=== PATIENT | female | born 1950 | race Caucasian/White ===

== ENCOUNTER 2018-06-16 10:45 | Outpatient (REF) | payer MEDICARE, MEDICAID, SELFPAY ==
[2018-06-16 19:56] LABS: Creatinine,Urine 90.76 mg/dL
[2018-06-16 20:15] LABS: Creatinine,24hr Ur 1.27 g/24hr (0.60-1.80); Total Volume 1425 ml
[2018-06-19 09:18] LABS: Uric Acid Urine 24hr 499 mg/24h (250-750)
[2018-06-19 09:24] LABS: Calcium Urine 21.6 mg/dl; Calcium Urine 24 hr 308 mg/24hr (100-300)
[2018-06-20 12:36] LABS: Oxalate Conc (mmol/L) 0.09 mmol/L; Oxalate Concentration 7.9 mg/L; Oxalate, U 0.13 mmol/24 h; Oxalate, U 11.4 mg/24 h (9.7 - 40.5); Urine Volume 1425 mL
== END 2018-06-16 11:05 ==
LOC: NCHCN 10:45
PROVIDERS: PCP Internal Medicine; Visit Provider Internal Medicine
DX: N18.3 Chronic kidney disease, stage 3 (moderate) (principal)
CPT/HCPCS: 81050; 82340; 82570; 83945; 84560

== ENCOUNTER 2018-12-14 12:53 | Outpatient (REF) | payer MEDICARE, MEDICAID, SELFPAY ==
[2018-12-14 19:42] LABS: ALT 27 U/L (12-78); AST 18 U/L (15-37); Amylase 43 U/L (25-115); Anion Gap 8.6 mmol/L (3-11); BUN 19 mg/dL (7-18); CO2 27.4 mmol/L (21.0-32.0); Chloride 102 mmol/L (98-107); Glucose 146 mg/dL (70-100); Lipase 73 U/L (73-393); Potassium 3.7 mmol/L (3.5-5.1); Sodium 138 mmol/L (136-145)
[2018-12-14 19:48] LABS: Calcium 10.9 mg/dL (8.5-10.1)
[2018-12-14 19:59] LABS: HGB 13.5 g/dL (12.0-15.5); Mean Corp. HGB Concentration 32.1 g/dL (32.0-36.0); Mean Corpuscular Hemoglobin 29.3 pg (27.0-33.0); Mean Corpuscular Volume 91.3 fL (80-95); Mean Platelet Volume 10.3 fL (8.0-11.0); Platelet Count 253 x1000/uL (130-400); RBC Distribution Width 13.9 % (11.7-14.6); White Blood Cell Count 8.85 k/cumm (4.4-10.8)
== END 2018-12-14 13:13 ==
LOC: NCHCN 12:53
PROVIDERS: PCP Internal Medicine; Visit Provider Nurse Practitioner Family
DX: I10 Essential (primary) hypertension (principal); R11.0 Nausea
CPT/HCPCS: 80048; 83690; 85027; 82150; 84450; 84460

== ENCOUNTER 2019-04-02 14:50 | Outpatient (REF) | payer MEDICARE, MEDICAID, SELFPAY ==
[2019-04-02 19:07] LABS: Anion Gap 10.1 mmol/L (3-11); BUN 20 mg/dL (7-18); CO2 25.9 mmol/L (21.0-32.0); Calcium 11.4 mg/dL (8.5-10.1); Chloride 106 mmol/L (98-107); Estimated GFR 48.96 (mL/min/1.73m2); Glucose 101 mg/dL (70-100); Potassium 4.4 mmol/L (3.5-5.1); Sodium 142 mmol/L (136-145)
[2019-04-02 19:26] LABS: Bilirubin Negative (Negative); Blood Negative (Negative); Clarity Cloudy (Clear); Glucose Negative (Negative); Ketones Negative (Negative); Leukocyte Esterase Negative (Negative); Nitrite Negative (Negative); Specific Gravity 1.015 (1.005-1.025); pH 7.5 (5-8)
[2019-04-02 19:58] LABS: WBC 0-2 HPF (0-5)
[2019-04-02 19:59] LABS: Bacteria Few HPF (Negative); Crystals Many Amorphous HPF (Negative); Epithelial Cells Many HPF (Negative); Mucus Negative (Negative); RBC Negative (0-2)
[2019-04-02 20:00] LABS: C & S Indicated? No/Sq. Contamination
== END 2019-04-02 15:10 ==
LOC: NCHCN 14:50
PROVIDERS: PCP Internal Medicine; Visit Provider Nurse Practitioner Family
DX: R10.32 Left lower quadrant pain (principal)
CPT/HCPCS: 80048; 81003; 81015

== ENCOUNTER 2019-08-16 11:20 | Outpatient (REF) | payer MEDICARE, SELFPAY ==
[2019-08-16 19:50] LABS: Anion Gap 11.6 mmol/L (3-11); BUN 18 mg/dL (7-18); CO2 27.4 mmol/L (21.0-32.0); CREATININE 1.08 mg/dL (0.55-1.02); Calcium 11.2 mg/dL (8.5-10.1); Calculated LDL 81 mg/dL; Chloride 102 mmol/L (98-107); Cholesterol 170 mg/dL (50-200); Estimated GFR 50.01 (mL/min/1.73m2); Glucose 106 mg/dL (70-100); HDL Cholesterol 48 mg/dL (40-60); Potassium 3.8 mmol/L (3.5-5.1); Sodium 141 mmol/L (136-145); TSH (W/Ref FT4) 1.82 uIU/mL (0.36-3.74); Triglyceride 205 mg/dL (30-150)
== END 2019-08-16 11:40 ==
LOC: NCHCN 11:20
PROVIDERS: PCP Internal Medicine; Visit Provider Nurse Practitioner Family
DX: I10 Essential (primary) hypertension (principal); E78.5 Hyperlipidemia, unspecified; E21.3 Hyperparathyroidism, unspecified
CPT/HCPCS: 80048; 80061; 84443

== ENCOUNTER 2020-01-31 08:17 | Outpatient (CLI) | payer MEDICARE, MEDICAID, SELFPAY ==
[2020-02-01 19:30] LABS: COVID-19 RT-PCR UVMMC Result Negative (Negative)
== END 2020-01-31 08:37 ==
PROVIDERS: PCP Internal Medicine; Visit Provider Urology
DX: N20.1 Calculus of ureter (principal); J44.9 Chronic obstructive pulmonary disease, unspecified; Z87.891 Personal history of nicotine dependence; Z11.59 Encounter for screening for other viral diseases
CPT/HCPCS: 99203; U0003

== ENCOUNTER 2020-02-05 06:04 | Day surgery (SDC) | payer MEDICARE, MEDICAID, SELFPAY ==
[2020-02-05 06:26] VITALS: BP 185/95; PULSE 68; RESP 18; TEMP 36.6; O2SAT 94
[2020-02-05] MEDS: Lactated Ringers 1,000 ML 80 ML IV (06:48)
--- NOTE | 2020-02-05 07:03 | HPE_ITS ---
Date of service: 02/05/20 Time of Service: 07:03 Assessment and Plan Assessment and plan (1) Left ureteral stone: Status: Acute Assessment and plan: She presents for ureteroscopic stone manipulation History of Present Illness History of Present Illness Chief Complaint: Left ureteral stone Narrative: This is a 69-year-old woman who has had very intermittent left abdominal and flank discomfort over the past year. About a month ago, she developed more persistent symptoms including abdominal pain and bloating. On examination, she was found to have microscopic hematuria which prompted a CT scan of the abdomen and pelvis. She was found to have a 7 mm left proximal ureteral stone. She had a stent placed about a month ago. She has had quite a bit of stent discomfort and frequency, urgency and incontinence. Dr. Thayer was not able to offer laser lithotripsy services at [facility], so she comes here in preparation of ureteroscopy with holmium laser. She continues to have some nausea but no documented fevers or urinary tract infection. She does have pain especially toward the end of urination. She has no known metabolic issues such as hyperparathyroid disease or gout. She has no known bleeding disorders. She has not had any adverse reaction to anesthesia in the past. She has not had any prior urologic surgeries (with the exception of her stent placement). Review of Systems Narrative: No fevers or chills No vision change or dysphasia No diabetes. Has thyroid followed by yearly ultrasound. No shortness of breath, cough or hemoptysis No chest pain or palpitations c/o nausea. No vomiting, hepatitis, ulcers, jaundice, diarrhea or constipation No seizures, strokes or peripheral neuropathy No bleeding disorders or anemia. Takes baby aspirin No gout PFSH Social History (Updated 01/31/20 @ 14:11 by Rodri Payton MD) Smoking/Tobacco Use Status: Former Tobacco Use Alcohol Intake: current Alcohol Intake frequency: holidays/special occasions only Alcohol type: beer and wine Do you feel safe at home: Yes Meds Home Medications and Allergies Home Medications Medication Instructions Recorded Confirmed Type albuterol sulfate 90 mcg/actuation 2 puff IH Q4H PRN gm 01/31/20 02/05/20 History aerosol inhaler aspirin 81 mg tablet,delayed 81 mg PO DAILY 01/31/20 02/05/20 History release fluoxetine 20 mg capsule 20 mg PO DAILY 01/31/20 02/05/20 History hydrochlorothiazide 25 mg tablet 25 mg PO DAILY 01/31/20 02/05/20 History hydrocodone 5 mg-acetaminophen 325 1 tab PO QHS PRN 01/31/20 02/05/20 History mg tablet hydromorphone 2 mg tablet 2 mg PO Q4H 01/31/20 02/05/20 History ibuprofen 200 mg tablet 400 mg PO Q6H PRN tab 01/31/20 02/05/20 History lisinopril 5 mg tablet 5 mg PO DAILY 01/31/20 02/05/20 History montelukast 10 mg tablet 10 mg PO DAILY 01/31/20 02/05/20 History nifedipine 30 mg tablet,extended 30 mg PO DAILY 01/31/20 02/05/20 History release omeprazole 20 mg capsule,delayed 20 mg PO BID 01/31/20 02/05/20 History release ondansetron HCl 4 mg tablet 4 mg PO Q6H PRN 01/31/20 02/05/20 History pyridostigmine bromide 60 mg tablet 90 mg PO TID tab 01/31/20 02/05/20 History simvastatin 40 mg tablet 40 mg PO DAILY 01/31/20 02/05/20 History umeclidinium 62.5 mcg/actuation 1 inh IH DAILY 01/31/20 02/05/20 History blister powder for inhalation Allergies Allergy/AdvReac Type Severity Reaction Status Date / Time desloratadine [From Clarinex] Allergy Unknown Unverified 02/05/20 06:15 Exam Const General: cooperative and no acute distress Neck Neck: supple Thyroid: no masses Resp Effort & Inspection: normal respiratory effort Auscultation: clear to auscultation bilaterally Cardio Rate: regular rate Rhythm: regular rhythm GI Inspection: normal to inspection Palpation: soft and no guarding Neuro General: patient alert, patient awake and patient oriented x3 Results Last Vital Signs Temp 36.6 C 02/05/20 06:26 Pulse 68 02/05/20 06:26 Resp 18 02/05/20 06:26 BP 185/95 H 02/05/20 06:26 Pulse Ox 94 L 02/05/20 06:26 COVID-19 Screening Traveled to [place] from one of the affected countries or regions?: NO Medical treatment received for symptoms/illness related to travel?: Preop testing completed and negative
[2020-02-05] MEDS: ceFAZolin 1 GM/50 ML BAG IVPB (07:37)
[2020-02-05] MEDS: Lidocaine 2% Jelly 6 ML SYR (07:52)
[2020-02-05] MEDS: Omnipaque 300 MG/ML 50 ML BTL (07:56)
--- NOTE | 2020-02-05 08:42 | DI.RAD_ITS ---
EXAM: XR RETROGRADE IN OR CLINICAL HISTORY: LEFT UERETERAL STONE. TECHNIQUE: Fluoroscopy was provided for the referring physician for guidance with performing retrogr amrit procedure. Fluoro time: 37.0 sec, 11.88 mGy COMPARISON: No exams were available for comparison FINDINGS: Please see procedure note for details. RADIATION DOSE DELIVERED:
--- NOTE | 2020-02-05 08:43 | W.PM.DSUDISC ---
Discharge Plan Disposition Patient Disposition: HOME Condition: Stable Discharge Details Reason For Visit: (L) URETERAL STONE Attending Provider: Rodri Payton Primary Care Provider: Carlos Cunningham Meds and New Rx's Prescriptions: No Action albuterol sulfate 90 mcg/actuation HFA aerosol inhaler 2 puff IH Q4H PRNRF: 0 aspirin 81 mg tablet,delayed release (DR/EC) 81 mg PO DAILY RF: 0 fluoxetine 20 mg capsule 20 mg PO DAILY RF: 0 hydrochlorothiazide 25 mg tablet 25 mg PO DAILY RF: 0 hydrocodone-acetaminophen 5-325 mg tablet 1 tab PO QHS PRNRF: 0 hydromorphone 2 mg tablet 2 mg PO Q4H RF: 0 ibuprofen 200 mg tablet 400 mg PO Q6H PRNRF: 0 Incruse Ellipta 62.5 mcg/actuation blister with device 1 inh IH DAILY RF: 0 lisinopril 5 mg tablet 5 mg PO DAILY RF: 0 montelukast 10 mg tablet 10 mg PO DAILY RF: 0 nifedipine 30 mg tablet extended release 30 mg PO DAILY RF: 0 omeprazole 20 mg capsule,delayed release(DR/EC) 20 mg PO BID RF: 0 ondansetron HCl 4 mg tablet 4 mg PO Q6H PRNRF: 0 pyridostigmine bromide 60 mg tablet 90 mg PO TID RF: 0 simvastatin 40 mg tablet 40 mg PO DAILY RF: 0 Discharge Instructions Additional Instructions: No need to strain urine Followup 3 to 7 days for stent removal - tell my office pt has string in place Pt will need followup renal US in @ 6 weeks Pt already has meds at home so no scripts sent today Followup care can be done at [facility] with Dr Thayer if more convenient for pt Activity:: Activity as Tolerated Shower/Bathe:: 24 hours Diet:: As Tolerated Discharge Orders Discharge Orders: Discharge Order (Routine); Ordered 02/05/20 Ordered By: Rodri Payton DS: Diagnosis Discharge Diagnosis (1) Left ureteral stone: Status: Acute
--- NOTE | 2020-02-05 08:52 | ROE_ITS ---
Date of service: 02/05/20 Time of Service: 08:52 Operative Note Operative Note DATE OF PROCEDURE: 02/05/20 PRE-OP DIAGNOSIS: Left proximal ureteral stone POST-OP DIAGNOSIS: same PROCEDURE: Cystoscopy, remove left ureteral stent, left retrograde pyelogram, left flexible ureteroscopy, holmium laser lithotripsy of left ureteral stone, extraction of stone fragments, insert left ureteral stent SURGEON: Rodri Payton ANESTHESIA: GETA ESTIMATED BLOOD LOSS: 0 PATHOLOGY: other (Stones for chemical analysis) Patient was transported to: PACU Patient's condition: stable Implants: 4.8 Luxembourger variable length ureteral stent with safety string attached Indications: This is a 69-year-old woman who presented to an outside institution with abdominal pain, bloating and hematuria. She was identified as having a proximal left ureteral stone that measured 7 mm. She was treated with a stent placement. The stent has been indwelling for about a month now. She has had quite a bit of stent discomfort. Holmium laser lithotripsy is not yet available at the outside institution, so she presents here for stone manipulation. Findings: Embedded left proximal ureteral stone Procedure Description: The patient was brought to the operating room on 02/05/2020. She was given preoperative IV antibiotics. After successful induction of general anesthesia she was placed in the dorsal lithotomy position. Her genitalia was prepped and draped. A 22 Luxembourger rigid cystoscope was passed through the urethra into the bladder. The bladder was inspected with a 30 degree lens. The right ureteral orifice appeared normal. The left ureteral orifice had marked edema surrounding it and a stent protruding from the lumen of the orifice. The remainder of the bladder appeared normal. We used alligator forceps to grasp the stent and bring it out to the lumen of the urethra. I initially attempted to pass a guidewire through the lumen of the stent, but the stent had quite a few encrustations and it was difficult to pass the wire. I then remove the stent in its entirety and passed a 6 Luxembourger access catheter. I was able to maneuver the catheter into the left ureteral orifice and inject Omnipaque through the catheter under fluoroscopic guidance this allowed us to see a filling defect at the proximal ureter just below the level of the ureteropelvic junction. We then passed a guidewire through the access catheter and removed the catheter. We replaced it with a dual-lumen catheter and passed a second wire. We chose 1 of the wires as a working wire and the other is a safety wire. We then passed a ureteral access sheath over the working wire and positioned the tip of the sheath in the proximal ureter. I then passed the flexible ureteroscope up through the access sheath and maneuvered the scope up toward the ureteropelvic junction. A yellow tinted stone was seen in the proximal ureter. The stone appeared somewhat embedded in the surrounding edematous ureteral mucosa. I then used the 272 ?m holmium laser fiber to fragment the stone. We started with dusting settings of a power of 200 and a rate of 8. Using these settings, we were able to clear the stone from the lumen of the ureter and passed some of the fragments back into the renal pelvis. I then passed the scope into the renal pelvis and grasped the largest of the fragments and a ZeroTip stone basket. These fragments were extracted and sent to pathology for chemical analysis. There is still appeared to be quite a bit of edema in that proximal ureter where the stone had been located I injected Omnipaque again under fluoroscopic guidance. There did not appear to be any extravasation of contrast. We filled each of the calyces and using the retrograde film as a map we made sure to each calyx and ensure the absence of large stone burden. Because of the appearance of the proximal mucosa, I elected to replace the ureteral stent short-term. I chose a smaller stent this time and used a 4.8 Luxembourger variable length stent that was passed over the safety wire the proximal end of the stent was curled in the upper pole calyx and the distal end was curled within the bladder. The safety string was left in place and brought through the patient's urethra. The end of the string was tied into the patient's vaginal cavity. I would recommend removing the stent in 3 to 7 days. The patient tolerated the procedure well with no complications. She was taken to the recovery room in stable condition.
[2020-02-05 08:56] VITALS: BP 174/72; PULSE 64; RESP 14; TEMP 36.4; O2SAT 96
[2020-02-05 09:00] VITALS: BP 169/84; PULSE 65; RESP 15; TEMP 36.4; O2SAT 97
[2020-02-05 09:05] VITALS: BP 178/67; PULSE 63; RESP 13; TEMP 36.4; O2SAT 95
[2020-02-05 09:10] VITALS: BP 172/84; PULSE 60; RESP 14; TEMP 36.7; O2SAT 96
[2020-02-05] MEDS: Phenazopyridine 200 MG TAB PO (09:29)
[2020-02-05] MEDS: HYDROmorphone 2 MG TAB PO (09:29)
[2020-02-05 09:55] VITALS: BP 173/97; PULSE 68; RESP 16; TEMP 36.7; O2SAT 93
[2020-02-11 14:53] LABS: Source: Left Ureter
== END 2020-02-05 10:13 | disposition home or self-care (01) ==
PROVIDERS: PCP Internal Medicine; Visit Provider Urology
PROC: (CPT 52356; principal; 2020-02-05 07:30)
DX: N20.1 Calculus of ureter (principal)
CPT/HCPCS: 52356; NC; 74420; 82365; J0690; J1100; J2405; J3010; Q9967

== ENCOUNTER 2020-07-14 13:57 | Outpatient (REF) | payer MEDICARE, MEDICAID, SELFPAY ==
[2020-07-14 19:55] LABS: Hemoglobin A1C 5.8 % (<5.7)
[2020-07-14 20:11] LABS: Albumin 3.7 g/dL (3.4-5.0); BUN 14 mg/dL (7-18); CREATININE 1.13 mg/dL (0.55-1.02); Calcium 10.4 mg/dL (8.5-10.1); Chloride 105 mmol/L (98-107); Estimated GFR 47.33 (mL/min/1.73m2); Glucose 136 mg/dL (74-106); Potassium 3.6 mmol/L (3.5-5.1); Sodium 141 mmol/L (136-145)
[2020-07-16 09:45] LABS: Parathyroid Hormone,Intact 158 pg/mL (19-88)
== END 2020-07-14 14:17 ==
LOC: NCHCN 13:57
PROVIDERS: PCP Internal Medicine; Visit Provider Nurse Practitioner Family
DX: I10 Essential (primary) hypertension (principal); E21.3 Hyperparathyroidism, unspecified; E11.9 Type 2 diabetes mellitus without complications
CPT/HCPCS: 80048; 82040; 83036; 83970; 84443

== ENCOUNTER 2020-07-25 07:16 | Day surgery (SDC) | payer MEDICARE, MEDICAID, SELFPAY ==
[2020-07-25 07:38] VITALS: BP 149/77; PULSE 80; RESP 20; TEMP 36.4; O2SAT 97
[2020-07-25] MEDS: Lactated Ringers 1,000 ML 80 ML IV (08:30)
[2020-07-25] MEDS: ceFAZolin 1 GM/50 ML BAG IVPB (11:03)
[2020-07-25] MEDS: Lidocaine 1% Multi-Dose 50 ML VIAL (11:05)
[2020-07-25] MEDS: Bupivacaine 0.5% Pres-Free 30 ML VIAL (11:05)
--- NOTE | 2020-07-25 11:40 | BONE_PTH ---
PATIENT: Franchesca Robledo LOC: [facility] U#:[id number] AGE/SX: 70/F ROOM: RE07/25/[address]: Marcus Wang : 1950 BED: DIS: 07/25/2020 SPEC #: [id number] RECD: 07/25/20 12:30 STATUS: VAZQUEZ REQ #: [id number] ZAIDA: 07/25/20 11:[address]: Marcus Wang DEPT: Surgical Specimen RECD BY: Odessa Yepez ENTERED: 07/25/20 12:32 SP TYPE: Bone OTHR DR: Carlos Cunningham Tissues: 1 - BONE BX/CURRETTE NOT PATH FRACTURE Procedures: GROSS AND MICRO LEVEL 4 DECALCIFICATION Comments: [id number]
[2020-07-25] MEDS: Dexamethasone 4 MG/ML VIAL (11:44)
--- NOTE | 2020-07-25 12:01 | ROE_ITS ---
Date of service: 07/25/20 Time of Service: 12:01 Operative Note Operative Note DATE OF PROCEDURE: 07/25/20 PRE-OP DIAGNOSIS: Hammertoe deformity right third digit, exostosis right hallux PROCEDURE: Exostectomy right hallux, arthroplasty with K wire fixation right third toe SURGEON: Marcus Wang ANESTHESIA: local ESTIMATED BLOOD LOSS: 3 PATHOLOGY: other TOURNIQUET TIME: 0 COMPLICATIONS: None Patient was transported to: same day Patient's condition: stable Implants: 0.045 K wire right third toe Indications: 70-year-old female with daily pain associated with a bone spur affecting her right great toe and contracture of her right third digit. Both conditions are causing pain in shoe gear interfering with daily activities. Nonoperative treatments have failed to provide sufficient relief of symptoms. She understands the risk and complications of surgery including the potential for pain, scarring, infection, shortening of the third toe, recurrence of deformities requiring revisional procedures. Informed consent has been obtained no promises made final outcome of surgery. Procedure Description: Franchesca was brought to the operative suite placed in the supine position with the right foot was prepped and draped in the usual sterile podiatric fashion. Timeout was performed in standard fashion. Anesthesia was obtained by local blockade of the right first and third toes using a total of 13 cc 50: 50 mixture, 1% lidocaine plain, 0.5% Marcaine plain. An additional 4 cc 1% lidocaine with epinephrine was then used proximally at the hallux and third toe for hemostasis. Attention was directed to the distal aspect of the right great toe where a partial fishmouth incision was made starting at the midline of the tip of the toe eminence extending medially the incision was deepened via controlled depth and dissection performed so as to expose the underlying bone which is the distal aspect of the distal phalanx. Immediately evident was his white cartilage appearing protein true purulence from the main bone consistent with exostosis. With osteotome and mallet the bone was resected this piece of bone was sent to pathology hand rasp was then used to smooth all remaining bony edges copious irrigation was performed. The incision was closed in a single layer with 4-0 nylon simple interrupted suture. Attention was directed to the dorsal aspect of the right third toe with 2 converging semielliptical incisions were made the incision was deepened in contr olled depth fashion hemostasis being acquired with electrocautery as needed a transverse tenotomy capsulotomy was then performed at the PIPJ level of the medial lateral collaterals were released and the head of the proximal phalanx delivered into the wound. With power instrumentation the head of the proximal phalanx was resected at its surgical neck. Excellent relaxation of the toe was appreciated in the hammering contracture was corrected. The toe was stabilized with a 0.045 K wire in retrograde fashion. Copious irrigation was performed. The extensor tendon was repaired end-to-end with 3-0 Vicryl. The skin was then coapted with simple interrupted suture of 4-0 nylon. 4 mg dexamethasone phosphate was then infused about the third toe. Xeroform gauze fluff compression dressings were applied. Franchesca left the OR with vital signs stable vascular status intact sharp and sponge counts were correct she will be followed by myself in the office next week.
--- NOTE | 2020-07-25 12:08 | PDOC.DSDIS_ITS ---
Discharge Plan Disposition Patient Disposition: HOME Condition: Good Discharge Details Attending Provider: Marcus Wang Primary Care Provider: Carlos Cunningham Home Meds and New Rx's Prescriptions: New hydrocodone-acetaminophen [[place]] 5-325 mg tablet 1 tab PO Q6H PRN (Reason: pain) Qty: 7 RF: 0 ibuprofen 600 mg tablet 600 mg PO Q6H PRN (Reason: pain and inflammation) Qty: 40 RF: 0 Continued albuterol sulfate 90 mcg/actuation HFA aerosol inhaler 2 puff IH Q4H PRNRF: 0 aspirin 81 mg tablet,delayed release (DR/EC) 81 mg PO DAILY RF: 0 fluoxetine 20 mg capsule 20 mg PO DAILY RF: 0 hydrochlorothiazide 25 mg tablet 25 mg PO DAILY RF: 0 hydrocodone-acetaminophen 5-325 mg tablet 1 tab PO QHS PRNRF: 0 hydromorphone 2 mg tablet 2 mg PO Q4H RF: 0 ibuprofen 200 mg tablet 400 mg PO Q6H PRNRF: 0 Incruse Ellipta 62.5 mcg/actuation blister with device 1 inh IH DAILY RF: 0 lisinopril 5 mg tablet 5 mg PO DAILY RF: 0 montelukast 10 mg tablet 10 mg PO DAILY RF: 0 nifedipine 30 mg tablet extended release 30 mg PO DAILY RF: 0 omeprazole 20 mg capsule,delayed release(DR/EC) 20 mg PO BID RF: 0 ondansetron HCl 4 mg tablet 4 mg PO Q6H PRNRF: 0 pyridostigmine bromide 60 mg tablet 90 mg PO TID RF: 0 simvastatin 40 mg tablet 40 mg PO DAILY RF: 0 Discharge Instructions Activity:: Elevate Remove Dressings/Wound Care:: Do Not Remove Shower/Bathe:: Cover Diet:: Normal Diet Discharge Orders Discharge Orders: Discharge Order (Routine); Ordered 07/25/20 Ordered By: Marcus Wang DS: Diagnosis Discharge Diagnosis (1) Hammertoe of right foot: Status: Acute
[2020-07-25] MEDS: Acetaminophen 325 MG TAB 650 MG PO (12:32)
[2020-07-25 12:34] VITALS: BP 148/90; PULSE 78; RESP 16; TEMP 36.2; O2SAT 97
== END 2020-07-25 13:02 | disposition home or self-care (01) ==
PROVIDERS: PCP Internal Medicine; Visit Provider Podiatrist
PROC: (CPT 28285; principal; 2020-07-25 09:00)
PROC: (CPT 28288; 2020-07-25 09:00)
DX: M20.41 Other hammer toe(s) (acquired), right foot (principal); M25.774 Osteophyte, right foot; K21.9 Gastro-esophageal reflux disease without esophagitis; I10 Essential (primary) hypertension; J44.9 Chronic obstructive pulmonary disease, unspecified; M89.9 Disorder of bone, unspecified
CPT/HCPCS: 28285; 28124; 88305; 88304; 88311; J0690; J1100

== ENCOUNTER 2020-10-29 20:02 | Outpatient (REF) | payer MEDICARE, MEDICAID, SELFPAY ==
[2020-11-10 11:06] LABS: Lorazepam Negative ng/mL (Cutoff: 10); Temazepam Negative ng/mL (Cutoff: 10)
[2020-11-10 11:07] LABS: 2-OH-Ethyl-Flurazepam Negative ng/mL (Cutoff: 10)
[2020-11-10 11:08] LABS: 7-NH-Clonazepam Negative ng/mL (Cutoff: 10)
[2020-11-10 11:09] LABS: 7-NH-Flunitrazepam Negative ng/mL (Cutoff: 10)
[2020-11-10 11:12] LABS: Benzodiazepines Interpretation Negative
[2020-11-10 11:13] LABS: Alpha OH-Alprazolam Negative ng/mL (Cutoff: 10)
[2020-11-10 11:21] LABS: Alpha-OH-Triazolam Negative ng/mL (Cutoff: 10)
== END 2020-10-29 20:22 ==
LOC: NCHCN 20:02
PROVIDERS: PCP Internal Medicine; Visit Provider Family Medicine
DX: M54.89 Other dorsalgia (principal); J44.9 Chronic obstructive pulmonary disease, unspecified; Z51.81 Encounter for therapeutic drug level monitoring
CPT/HCPCS: 80346

== ENCOUNTER 2020-12-18 15:50 | Outpatient (REF) | payer MEDICARE, MEDICAID, SELFPAY ==
[2020-12-18 18:20] LABS: Abs Immature Grans 0.04 10^3/uL (0.0-0.06); Absolute Basophil Count 0.06 10^3/uL (0.0-0.2); Absolute Eosinophil Count 0.09 10^3/uL (0.0-0.7); Absolute Lymphocyte Count 2.39 10^3/uL (1.2-3.4); Absolute Monocyte Count 0.79 10^3/uL (0.1-0.8); Absolute Neutrophil Count 5.95 10^3/uL (1.2-6.7); Basophils % 0.6; HCT 42.3 % (36.0-46.0); HGB 13.2 g/dL (11.2-15.7); Immature Grans % 0.4; Lymphocytes % 25.6; MCH 28.6 pg (27.0-33.0); MCHC 31.2 % (32.0-36.0); MCV 91.6 fL (80-95); MPV 10.5 fL (8.0-11.0); Monocytes % 8.5; Neutrophils % 63.9; Nucleated RBC 0 %; Platelet Count 285 10^3/uL (130-400); RBC 4.62 10^6/uL (3.93-5.22); RDW 13.2 % (11.7-14.6); WBC 9.32 10^3/uL (4.4-10.8)
[2020-12-18 18:39] LABS: ALT 29 U/L (14-59); AST 17 U/L (15-37); Albumin 3.9 g/dL (3.4-5.0); Alkaline Phosphatase 113 U/L (46-116); Anion Gap 9.8 mmol/L (3-11); BUN 20 mg/dL (7-18); Bilirubin, Total 0.4 mg/dL (0.2-1.0); CO2 25.2 mmol/L (21.0-32.0); CREATININE 1.1 mg/dL (0.55-1.02); Chloride 105 mmol/L (98-107); Estimated GFR 48.82 (mL/min/1.73m2); Glucose 93 mg/dL (74-106); Lipase 106 U/L (73-393); Potassium 4.1 mmol/L (3.5-5.1); Sodium 140 mmol/L (136-145); Total Protein 7.3 g/dL (6.4-8.2)
[2020-12-22 09:43] LABS: Parathyroid Hormone,Intact 105 pg/mL (19-88)
== END 2020-12-18 15:51 | disposition home or self-care (01) ==
LOC: NCHCN 15:50
PROVIDERS: PCP Internal Medicine; Visit Provider Family Medicine
DX: R10.84 Generalized abdominal pain (principal); E83.52 Hypercalcemia
CPT/HCPCS: 80053; 83690; 83970; 85025

== ENCOUNTER 2020-12-24 12:58 | Outpatient (REF) | payer MEDICARE, MEDICAID, SELFPAY | END 2020-12-24 12:59 | disposition home or self-care (01) | LOC: NCHCN 12:58 | PROVIDERS: PCP Internal Medicine; Visit Provider Family Medicine | DX: E21.3 Hyperparathyroidism, unspecified (principal) | CPT/HCPCS: 82306; 81050; 84155 ==

== ENCOUNTER 2020-12-29 12:45 | Outpatient (REF) | payer MEDICARE, MEDICAID, SELFPAY ==
[2020-12-30 09:06] LABS: Calcium Urine 28.2 mg/dL (See Note); Calcium Urine 24 hr 212 mg/24hrs (100-300); Timed Urine Volume 750 mL
== END 2020-12-29 12:46 | disposition home or self-care (01) ==
LOC: NCHCN 12:45
PROVIDERS: PCP Internal Medicine; Visit Provider Family Medicine
DX: E21.3 Hyperparathyroidism, unspecified (principal)
CPT/HCPCS: 81050; 82340

== ENCOUNTER 2021-03-06 18:49 | Outpatient (REF) | payer MEDICARE, MEDICAID, SELFPAY ==
[2021-03-06 19:29] LABS: BUN 18 mg/dL (7-18); CREATININE 1.2 mg/dL (0.55-1.02); Calcium 10.7 mg/dL (8.5-10.1); Chloride 106 mmol/L (98-107); Estimated GFR 44.16 (mL/min/1.73m2); Glucose 123 mg/dL (74-106); Potassium 4.2 mmol/L (3.5-5.1); Sodium 140 mmol/L (136-145)
[2021-03-09 05:25] LABS: Vitamin D 25 Total 33.2 ng/mL (30-100)
[2021-03-09 10:35] LABS: Parathyroid Hormone,Intact 165 pg/mL (19-88)
== END 2021-03-06 18:50 | disposition home or self-care (01) ==
LOC: NCHCN 18:49
PROVIDERS: PCP Internal Medicine; Visit Provider Physician Assistant
DX: E21.3 Hyperparathyroidism, unspecified (principal); E55.9 Vitamin D deficiency, unspecified
CPT/HCPCS: 80048; 82306; 83970

== ENCOUNTER 2022-02-09 21:16 | Outpatient (REF) | payer MEDICARE, MEDICAID, SELFPAY ==
[2022-02-09 19:58] LABS: Anion Gap 7.7 mmol/L (3-11); BUN 16 mg/dL (7-18); CO2 27.3 mmol/L (21.0-32.0); CREATININE 1.2 mg/dL (0.55-1.02); Calcium 8.6 mg/dL (8.5-10.1); Chloride 104 mmol/L (98-107); Estimated GFR 44.04 (mL/min/1.73m2); Glucose 100 mg/dL (74-106); Potassium 4.3 mmol/L (3.5-5.1); Sodium 139 mmol/L (136-145)
== END 2022-02-09 21:17 | disposition home or self-care (01) ==
LOC: NCHCN 21:16
PROVIDERS: PCP Internal Medicine; Visit Provider Physician Assistant
DX: I10 Essential (primary) hypertension (principal)
CPT/HCPCS: 80048

== ENCOUNTER 2022-03-03 20:52 | Outpatient (REF) | payer MEDICARE, MEDICAID, SELFPAY ==
[2022-03-03 22:23] LABS: Albumin 3.7 g/dL (3.4-5.0); NT-proBNP 116 pg/mL (<300)
[2022-03-03 22:33] LABS: D-Dimer 684 ng/mlFEU (<500)
[2022-03-03 22:42] LABS: COMMENT (LAB VIEW ONLY) 116.47 mg/dL; Microalb ug/mg Crea 22.9 ug/mg Cr
== END 2022-03-03 20:53 | disposition home or self-care (01) ==
LOC: NCHCN 20:52
PROVIDERS: PCP Internal Medicine; Visit Provider Nurse Practitioner Family
DX: R60.0 Localized edema (principal)
CPT/HCPCS: 82040; 82043; 82570; 83880; 85379

== ENCOUNTER 2023-02-02 15:16 | Outpatient (REF) | payer OTHER, MEDICAID, SELFPAY ==
--- OUTSIDE RECORDS SUMMARY | 2023-02-02 15:20 | XMS_ITS | Continuity of Care Document ---
Author Name Unknown Organization [facility] Address [address] [place] [address] Care Team Providers Care Training And Development Coordinator Name Role Phone [facility] Primary [facility] Physician Encounter [facility] Date(s): 08/30/22 - 08/30/[address] [phone] Discharge Disposition: Home or Self Care Attending Physician: Aditya Brown MD Admitting Physician: Aditya Brown MD Referring Physician: Micheline Perry PA-C Allergies, Adverse Reactions, Alerts Substance Reaction Severity Status desloratadine Unknown Active Assessment and Plan Future Appointments Immunizations Given and Recorded Vaccine Date Status Refusal Reason tetanus-diphth toxoids (Td) adult/adol 10/03/00 Re corded varicella virus vaccine 10/03/00 Recorded Medications aspirin 0 Refill(s) Start Date: 08/19/22 Status: Ordered Flarex 0 Refill(s) Start Date: 08/19/22 Status: Ordered FLUoxetine 40 mg oral capsule 40 mg = 1 cap, Oral, Daily, # 30 cap, 0 Refill(s) Start Date: 08/19/22 Status: Ordered HYDROcodone-acetaminophen 5 mg-325 mg oral tablet 0 Refill(s) Start Date: 08/19/22 Status: Ordered ibuprofen 800 mg oral tablet 0 Refill(s) Start Date: 08/19/22 Status: Ordered Incruse Ellipta 0 Refill(s) Start Date: 08/19/22 Status: Ordered lisinopril 10 mg oral tablet 1 tab, Oral, Daily, # 90 tab, 4 Refill(s), Pharmacy: [facility] #[id number], 165, cm, 03/01/22 12:07:00 EDT, Height/Length Dosing, 90, kg, 03/01/22 12:07:00 EDT, Weight Dosing Start Date: 04/08/22 Status: Ordered loratadine 10 mg oral capsule 0 Refill(s) Start Date: 08/19/22 Status: Ordered Myrbetriq 50 mg oral tablet, extended release 50 mg = 1 tab, Oral, Daily, do not crush or chew, # 30 tab, 0 Refill(s) Start Date: 08/19/22 Status: Ordered NIFEdipine (Eqv-Procardia XL) 30 mg oral tablet, extended release 0 Refill(s) Start Date: 08/19/22 Status: Ordered omeprazole 20 mg oral delayed release capsule 0 Refill(s) Start Date: 08/19/22 Status: Ordered pyridostigmine 60 mg oral tablet 0 Refill(s) Start Date: 08/19/22 Status: Ordered simethicone 125 mg oral capsule 125 mg = 1 cap, Oral, QID, # 30 cap, 0 Refill(s) Start Date: 08/19/22 Status: Ordered simvastatin 40 mg oral tablet 0 Refill(s) Start Date: 08/19/22 Status: Ordered Ventolin HFA 90 mcg/inh inhalation aerosol 0 Refill(s) Start Date: 08/19/22 Status: Ordered Vitamin D3 0 Refill(s) Start Date: 08/19/22 Status: Ordered Problem List Condition Confirmation Course Effective Dates Status Health Status Informant Aortic root dilation Confirmed Active Arthritis Confirmed Active Arthritis of spine Confirmed Active Bilateral hearing loss Confirmed Active Cataract Confirmed Active CKD (chronic kidney disease) Confirmed Active COPD (chronic obstructive pulmonary disease) Confirmed Active Chronic pain Confirmed Active Depression Confirmed Active GERD (gastroesophageal reflux disease) Confirmed Active Hypercholesteremia Confirmed Active Hyperlipidemia Confirmed Active Hyperparathyroidism Confirmed Active Hypertension Confirmed Active IBS (irritable bowel syndrome) Confirmed Active Renal calculus Confirmed Active Lumbar radiculopathy Confirmed Active Myasthenia gravis Confirmed Active Osteoporosis Confirmed Active Parathyroid adenoma Confirmed Active Sleep apnea Confirmed Active Procedures Procedure Date Related Diagnosis Body Site Status Cholecystectomy Completed Eyelid repair Completed Thumb surgery Completed Social History Social History Type Response Tobacco Former tobacco user Tobacco Use:. Sex Female Patient Care team information Personnel Name: Carlos Sykes MD Address: Address: [address] [address]- [place]
--- OUTSIDE RECORDS SUMMARY | 2023-02-02 15:20 | XMS_ITS | Continuity of Care Document ---
Author Name Unknown Organization [facility] Address [address] [place] [address] Care Team Providers Care Atomic Spectroscopist Name Role Phone [facility] Primary Care Physician Encounter [facility] Date(s): 08/25/22 - 08/25/[address] [address] Discharge Disposition: Home or Self Care Attending [...] Daily, # 90 tab, 4 Refill(s), Pharmacy: [facility][id number], 165, cm, 03/01/22 12:07:00 EDT, Height/Length [...] Personnel Name: Carlos Sykes MD Address: Address: [address] [address]- [place]
--- OUTSIDE RECORDS SUMMARY | 2023-02-02 15:20 | XMS_ITS | Continuity of Care Document ---
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, right hip(Final) - Discharge Disposition: Home or Self Care Attending Physician: Aditya Brown MD Admitting Physician: Aditya Brown MD Referring Physician: Marisa [facility], Carlos Curran MD Allergies, Adverse Reactions, Alerts Substance Reaction Severity [...] Daily, # 90 tab, 4 Refill(s), Pharmacy: [facility] #[id number], 165, cm, 03/01/22 12:07:00 EDT, Height/Length [...] Completed Eyelid repair Completed Thumb surgery Completed Vital Signs Most recent to oldest [Reference Range]: 1 2 Temperature Temporal Artery [36-38 Deg C ] 36.8 Deg C (09/13/22 10:49 AM) 36.9 Deg C (09/13/22 10:27 AM) Peripheral Pulse Rate [60-100 bpm] 88 bp m (09/13/22 10:49 AM) 90 bpm (09/13/22 10:27 AM) Respiratory Rate [12-24 br/min] 20 br/mi n (09/13/22 10:27 AM) Blood Pressure [90-140/60-90 mmHg] 146/1 26mmHg *HI* (09/13/22 10:49 AM) 158/86mmHg *HI* (09/13/22 10:27 AM) Social History Social History Type Response Tobacco Former tobacco user Tobacco Use:. Sex Female Anesthesiology Progress note * Aditya Brown MD: PERFORM Event Display: Anesthesiology Progress Note Authored Date: [id number] JEREMIE MENDOZA :1950 Age:72 years Sex:Female Visit Date:09/13/2022 Primary Care Physician: Carlos Sykes MD Right??hip injection??with??ultrasound guidance Images 2-year-old white female with DJD of right hip joint??benefits and limitations of the procedure wereexplained to the patient she excepted these she was taken to the holding area??her right groin was sterilely prepped and draped ultrasound was used to visualize the junction between the neck and headof the femur skin and deeper tissues were anesthetized with 1% lidocaine.?? An 80 mm 21-gauge regional block needle was advanced with ultrasound guidance to the junction??of the neck and head of the femur??once the needle was in proper place??7 cc of 0.25% bupivacaine and 80 mg of Depo-Medrol was injected??the needle was then removed pressure held for a few moments patient tolerated the block well her pain was substantially??reduced following the injection??she will follow- up??with the orthopedic office Electronically Signed on 09/13/22 11:04 AM Aditya Brown MD Patient Care team information Personnel Name: Carlos Sykes MD Address: Address: [address] [address]- [place]
--- OUTSIDE RECORDS SUMMARY | 2023-02-02 15:20 | XMS_ITS | Continuity of Care Document ---
Author Name Unknown Organization [facility] Address [address] [place] [address] Care Team Providers Care Change Management Director Name Role Phone Carlos Sykes Primary Care Physician [facility] - 08/13/[address] [address] Discharge Disposition: Home or Self Care Attending Physician: Celine Mcmahan Admitting Physician: Celine Mcmahan Referring Physician: Celine Mcmahan Allergies, Adverse Reactions, Alerts Substance Reaction Severity Status desloratadine Unknown Active Assessment and Plan Future Appointments Immunizations Given and Recorded Vaccine Date Status Refusal Reason tetanus-diphth toxoids (Td) adult/adol 10/03/00 Re corded varicella virus vaccine 10/03/00 Recorded Medications lisinopril 10 mg oral tablet 1 tab, Oral, Daily, # 90 tab, 4 Refill(s), Pharmacy: [facility], 165, cm, 03/01/22 12:07:00 EDT, Height/Length Dosing, 90, kg, 03/01/22 12:07:00 EDT, Weight Dosing Start Date: 04/08/22 Status: Ordered Social History Social History Type Response Tobacco Former tobacco user Tobacco Use:. Sex Female Patient Care team information Care Team Personnel Name: Carlos Sykes MD Position: Physician Member Role: Primary Care Physician Address: Address: [facility] [address], [place] [address] Care Team Related Persons Name: KARUNA MENDOZA Address: Home Name: KARUNA MENDOZA Address: Home Name: ZOE MENDOZA Address: Home Name: ZOE MENDOZA Address: Home
--- OUTSIDE RECORDS SUMMARY | 2023-02-02 15:20 | XMS_ITS | Continuity of Care Document ---
Author Name Unknown Organization [facility] Address [address] [place] [address] Care Team Providers Care Industrial Organizational Psychologist Name Role Phone Marisa [facility] Date(s): 01/21/23 - 01/21/23 [facility] [address] [place] [address] Encounter Diagnosis Obstructive sleep apnea, adult(Discharge Diagnosis) - 01/19/23 Discharge Disposition: Home or Self Care Attending Physician: Emi Campos PATIENT CARE ASSISTANT Allergies, Adverse Reactions, Alerts Substance Reaction Severity Status desloratadine Unknown Active Functional Status 01/21/23 Other exposure to Infectious Disease Non e Immunizations Given and Recorded Vaccine Date Status [...] Daily, # 90 tab, 4 Refill(s), Pharmacy: [facility], 165, cm, 03/01/22 12:07:00 EDT, Height/Length [...] radiculopathy Confirmed Active Myasthenia gravis Confirmed Active Obstructive sleep apnea, adult Confirmed Active Osteoporosis Confirmed Active Parathyroid adenoma Confirmed Active Procedures Procedure Date Related Diagnosis Body Site Status Cholecystectomy Completed Eyelid repair Completed Thumb surgery Completed Vital Signs Most recent to oldest [Reference Range]: 1 Peripheral Pulse Rate [60-100 bpm] 69 bp m (01/21/23 10:01 AM) Blood Pressure [90-140/60-90 mmHg] 143/7 6mmHg *HI* (01/21/23 10:01 AM) Weight 89.81 kg (01/21/23 10:01 AM) Weight Measured (lbs) 197.997 lb (01/21/23 10:01 AM) Height 162 cm (01/21/23 10:01 AM) Height/Length Measured (inches) 63.78 in ch (01/21/23 10:01 AM) BSA Measured 2.01 m2 (01/21/23 10:01 AM) Body Mass Index 34.22 kg/m2 (01/21/23 10:01 AM) Social History Social History Type Response Tobacco Former tobacco user Tobacco Use:. Sex Female Polysomnography (sleep) study * Nic Downs: PERFORM Event Display: Sleep Study Authored Date: [id number] * Nic Downs: PERFORM Event Display: Sleep Study Authored Date: [id number] Progress note * Nic Downs: PERFORM Event Display: Progress Note - Physician Authored Date: [id number] Physician Outpatient Note * Emi Campos PATIENT CARE ASSISTANT: PERFORM Event Display: Office Clinic Note Physician Authored Date: [id number] FRANCHESCA ROBLEDO :1950 Age:72 years Sex:Female Visit Date:01/21/2023 Primary Care Physician: Swapna Sykes MD History of Present Illness Franchesca Robledo has a visit for LUANA follow-up. ?? Franchesca was last seen by me on 02/09/2021. She has a medical history to include CKD, COPD, depression, aortic root dilation, GERD, HLD, hyperparathyroidism, myasthenia gravis, osteoporosis and LUANA. ?? PSG 04/21/2005 with an AHI of 21 and Sp02 andrew 79%. No significant PLMS. Titration study 03/03/2011. CPAP was titrated to 10 cm, 8 cm and higher was successful. APAP 6-10 cm was recommended. At her last visit she was using CPAP 12-16 cm nightly with improvement in her sleepiness and an excellent reduction in AHI. No change was made. Franchesca says things are fine and she can't sleep without it. She gets to bed around 11 pm, she falls asleep easily most nights but occasionally it takes a while. She wakes 1/night to urinate andthen gets back to sleep. She??gets up between 7:30-9:30 am to start her day. She is not typically napping.??The air pressure feels fine and she tolerates her nasal pillows well. She is not waking choking.gasping and is not aware of snoring, no morning headaches, nocturnal reflux or morning headaches. ??She says she has been getting the wrong supplies from [employer]. They sent the humidifier and wrong cushion sizes. She plans on bringing them back to the store. ? ESS today 10/26 COMPLIANCE DATA REVIEWED WITH PATIENT: Dates 12/21/22-01/19/23, Used 30/30 nights, average use 9??hrsand 47??minutes. Mean pressure 12.8 cm, 90th percentile pressure 15 cm, time in large air leak 0??minutes, AHI 4.1/hr. Physical Exam Vitals & Measurements HR:??69??(Peripheral)?? BP:??143/76?? SpO2:??97%?? HT:??162??cm?? WT:??89.81??kg?? BMI:??34.22?? BSA:??2.01?? GENERAL: answers questions appropriately, well groomed, obese. HEAD: normocephalic and atraumatic. EYES: non icteric LUNGS: CTA all frey. Good air movement throughout. CARDIO: RRR without murmur, gallop or thrill. NEURO: alert and oriented, normal gait. PYSCH: normal mood and affect. CUTANEOUS: no overt lesions or rashes.?? Assessment/Plan 1.??Obstructive sleep apnea, adult??G47.33 LUANA diagnosed in 2004 with an AHI of 21/hr. She has been using APAP 12-16 cm with excellent compliance and reduction in AHI.??She benefits from CPAP (in fact she can't get any sleep without it) and continued use is recommended. She has been getting the wrong supplies from [employer] to include mask and humidifier chamber recently. I sent an order asking them to make sure she gets the correct equipmentand she plans to stop by the store to return the supplies that do not work with her CPAP. She is advised to keep up with the routine maintenance of the machine and to clean/replace parts as needed. Hannah see her back in two years. She is asked to call our office for any sleep related questions or c oncerns. I provided greater than 30 minutes in the care of this patient, more than half the time was spent in [id number] counseling. Ordered: Follow-Up Appointment Request LEONAY, *Est. 01/21/25 +/- 28 days, Future Order, In [facility] ?? Referral Orders Referral Management, Medical Service: Other, Reason: Please make sure you are sending the correct supplies. She reports the last two shipments had the wrong nasal pillows and the wrong humidifier [place], Start: 01/21/23 Problem List/Past Medical History Ongoing Aortic root dilation Arthritis Arthritis of spine Bilateral hearing loss Cataract Chronic pain CKD (chronic kidney disease) COPD (chronic obstructive pulmonary disease) Depression GERD (gastroesophageal reflux disease) Hypercholesteremia Hyperlipidemia Hyperparathyroidism Hypertension IBS (irritable bowel syndrome) Lumbar radiculopathy Myasthenia gravis Obstructive sleep apnea, adult Osteoporosis Parathyroid adenoma Renal calculus Historical Sleep apnea Procedure/Surgical History ???Cholecystectomy???Eyelid repair???Thumb surgery Medications aspirin Flarex FLUoxetine 40 mg oral capsule, 40 mg= 1 cap, Oral, Daily HYDROcodone-acetaminophen 5 mg-325 mg oral tablet ibuprofen 800 mg oral tablet Incruse Ellipta lisinopril 10 mg oral tablet, 1 tab, Oral, Daily loratadine 10 mg oral capsule Myrbetriq 50 mg oral tablet, extended release, 50 mg= 1 tab, Oral, Daily NIFEdipine (Eqv-Procardia XL) 30 mg oral tablet, extended release omeprazole 20 mg oral delayed release capsule pyridostigmine 60 mg oral tablet simethicone 125 mg oral capsule, 125 mg= 1 cap, Oral, QID simvastatin 40 mg oral tablet Ventolin HFA 90 mcg/inh inhalation aerosol Vitamin D3 Allergies desloratadine Social History Alcohol Current, 1-2 times per month Electronic Cigarette/Vaping Electronic Cigarette Use: Never. Other Substance Use Never Tobacco Former tobacco user Tobacco Use:. Immunizations Vaccine Date Status tetanus-diphth toxoids (Td) adult/adol Recorded varicella virus vaccine Recorded Electronically Signed on 04/21/23 10:23 AM Emi Campos PATIENT CARE ASSISTANT * Nic Downs: PERFORM Event Display: Office Clinic Note Physician Authored Date: Print Patient Name FRANCHESCA ROBLEDO (70yo, F) ID# [id number] Appt. Date/Time 02/09/2021 09:30AM 1950 Service Dept. [facility] Provider EMI CAMPOS NP Insurance Med Primary[place] Insurance # : [id number] Med Secondary: [facility] (MEDICAID) Insurance # : [id number] Med : [facility] - OUTPATIENT - INSTITUTIONAL (MEDICAID) Insurance # : [id number] Med : [place]ARE) Insurance # : [id number] Prescription: [facility] MEDICA[facility] - Member is eligible. details [facility] details Chief Complaint None recorded. Patient's Care Team General Surgeon: MELO LOWRY MD: [address] [place] [id number], , Urologist: SAUL SALAS MD: [address] [place] [address] [place] [address], , Primary Care Provider: SWAPNA RILEY MD: [address] [place] [address], , Junior Accountant: MINERVA CHARLES MD: [address] [place] [address], Ph , Patient's Pharmacies [facility] ([facility]): [address], [place] [address], , Vitals Ht: 5 ft 4 in Stated (162.56 cm) 02/09/2021 09:18 am Wt: 177.8 lbs With clothes (80.65 kg) 02/09/2021 09:18 am BMI: 30.5 02/09/2021 09:18 am BP: 123/58 02/09/2021 09:20 am Pulse: 77 bpm 02/09/2021 09:21 am O2Sat: 97% 02/09/2021 09:21 am Allergies Reviewed Allergies CLARINEX: - unsure of reaction No seafood allergy. No known contrast allergy. Medications Reviewed Medications albuterol sulfate HFA 90 mcg/actuation aerosol inhaler INHALE TWO PUFFS BY MOUTH EVERY 4 TO 6 HOURS NEEDED 01/04/21 filled surescripts aspirin 81 mg tablet Take by oral route., start 01/26/2019 01/26/19 started Deann Self RN Chantix 1 mg tablet TAKE ONE TABLET BY MOUTH TWICE DAILY 12/31/20 filled surescripts Chantix Starting Month Box 0.5 mg (11)-1 mg (42) tablets in dose pack 07/14/20 filled [facility] ergocalciferol (vitamin D2) 1,250 mcg (50,000 unit) capsule TAKE ONE CAPSULE BY MOUTH EVERY WEEK Internal Note: once weekly on Sundays12/27/20 filled surescripts FLUoxetine 40 mg capsule TAKE ONE CAPSULE BY MOUTH EVERY DAY 12/16/20 filled surescripts HYDROcodone 5 mg-acetaminophen 325 mg tablet TAKE ONE TABLET BY MOUTH TWICE A DAY NEEDED FOR PAIN MUST LAST 28 DAYS 01/01/21 filled surescripts ibuprofen 800 mg tablet TAKE ONE TABLET BY MOUTH TWICE A DAY NEEDED 11/09/20 filled surescripts Incruse Ellipta 62.5 mcg/actuation powder for inhalation INHALE ONE PUFF BY MOUTH ONCE DAILY 10/31/20 filled surescripts lisinopriL 10 mg tablet Take 1 tablet(s) every day by oral route. 01/08/21 prescribed Minerva Charles MD montelukast 10 mg tablet TAKE ONE TABLET BY MOUTH ONCE DAILY 10/30/20 filled surescripts Myrbetriq 50 mg tablet,extended release TAKE ONE TABLET BY MOUTH EVERY DAY 01/02/21 filled surescripts NIFEdipine ER 30 mg tablet,extended release TAKE ONE TABLET BY MOUTH ONCE DAILY 12/02/20 filled surescripts ondansetron 4 mg disintegrating tablet DISSOLVE ONE TABLET ON TONGUE EVERY 4 TO 6 HOURS NEEDED FOR NAUSEA / VOMITING 12/19/20 filled surescripts Premarin 0.625 mg/gram vaginal cream apply about 3/4 inch around urethra opening 2 nights weekly 03/10/20 prescribed Saul Salas MD pyridostigmine bromide 60 mg tablet TAKE ONE AND ONE HALF TABLETS BY MOUTH THREE TIMES DAILY 12/09/20 filled surescripts simvastatin 40 mg tablet TAKE 1 TABLET BY MOUTH AT BEDTIME 12/27/20 filled surescripts sucralfate 1 gram tablet Take 1 tablet(s) 4 times a day by oral route. 02/05/21 entered Deann Self RN Tessalon Perles 100 mg capsule Take 1 capsule(s) every 8 hours by oral route as needed. Internal Note: 02/05/2021 Pt denies takinga ny longer. 12/28/19 entered Deann Self RN reviewed with patient 04/18/2020 Vaccines Vaccine Type Date Amt. Route Site [facility] Lot # [id number]. Exp. 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 Diphtheria, Tetanus Td (adult), adsorbed 10/03/00 Varicella varicella 10/03/00 Problems Reviewed Problems Parathyroid adenoma - Onset: 01/26/2019 Thyroid nodule - Onset: 01/26/2019 Hyperthyroidism - Onset: 12/28/2019 Hyperparathyroidism - Onset: 01/26/2019 Hyperlipidemia - Onset: 01/26/2019 Anxiety - Onset: 12/28/2019 Depressive disorder - Onset: 12/28/2019 Myasthenia gravis - Onset: 12/28/2019 - per diagnosis of Dr Monzon at [facility] Cataract - Onset: 12/28/2019 - left Bilateral hearing loss - Onset: 12/28/2019 Aortic root dilatation - Onset: 12/28/2019 Chronic obstructive lung disease - Onset: 01/26/2019 Gastroesophageal reflux disease - Onset: 01/26/2019 Chronic kidney disease stage 3 - Onset: 01/26/2019 Kidney stone - Onset: 12/28/2019 - left Hammer toe - Onset: 12/28/2019 Sleep apnea - Onset: 12/28/2019 Chronic cough - Onset: 12/28/2019 Nausea - Onset: 01/26/2019 Dysphagia - Onset: 01/26/2019 Prediabetes - Onset: 12/28/2019 Obstructive sleep apnea syndrome - PSG 04/21/05, AHI 21, 02 79%, CPAP 12-16cm Abdominal bloating Achilles tendinitis Constipation Pain of right shoulder joint Non-toxic uninodular goiter Idiopathic osteoarthritis Arthralgia of the ankle and/or foot Pelvic and perineal pain Cervical intraepithelial neoplasia grade 1 Pain in finger of right hand Migraine Hypertensive disorder Arthropathy Rotator cuff syndrome Hip pain Specialized medical examination Talipes planus Family History Family History not reviewed (last reviewed 04/30/2020) Father - Myocardial infarction - Hyperlipidemia Mother - Hypertensive disorder Brother - Hypertensive disorder Down Syndrome; Father (pt denies) Heart Disease; Father Hypertension; Daughter Senile Osteopenia; Father Hypertension; Mother, Father Cancer; Father (skin), Mother (uterus) Social History Reviewed Social History [facility] General Social History List Advance directive: N (Notes: pt has packet) Tobacco Smoking Status: Former smoker (Notes: quit November 2020) Smoker () (Notes: smoked 50+ years 1/2ppd) Smokeless Tobacco Status: Never used smokeless tobacco E-cigarette/Vape Status: Never used electronic cigarettes Most Recent Tobacco Use Screenin01/08/2021 Alcohol intake: Occasional (Notes: socially) Caffeine intake: (Notes: 1 cup coffee daily, 2-3 cups of tea every other day or so) Chewing tobacco: none Passive smoke exposure?: N Drug Use: N Occupation: retired Are you currently employed?: N Live alone or with others?: with others (Notes: daughter) Hard of hearing or deaf in one or both ears?: Y (Notes: ALTURAS bilateral) Language Difficulties: No Blind or serious difficulty seeing: Y (Notes: reading glasses) Guns present in home: (Notes: pt refuses to answer) Animal exposure?: Y (Notes: one cat) Exercise level: Occasional (Notes: Climbs stairs, housework, walks) Hand Dominance: Right Have you traveled internationally?: N (Notes: pt denies s.o.b, chest pain/tightness, cough, elevated temperatures, pt reports that they and their household members are practicing good hand hygiene and social distancing practices, pt reports that they have not travelled out of their county, verbal education provided to reinforce good hand hygiene and social distancing practices (noted Ignacia Andersen RN 01/04/20 0911)--pt denies s.o.b, chest pain/tightness, cough, elevated temperatures, pt reports that they and their household members are practicing good hand hygiene and social distancing pra ctices, pt reports that they have not travelled out of their county, verbal education provided to reinforce good hand hygiene and social distancing practices (noted Ignacia Andersen RN 02/26/2020 0946)) Have you had close contact with someone who travelled internationally and was ill?: N Surgical History Surgical History not reviewed (last reviewed 02/05/2021) Repair of eyelid - bilateral eyes Procedure on joint - bilateral for basal joint arthritis--with tendon graft Placement of stent - 02/01/2020 - left--placed by Dr Payton in [place] (ureteral) Cystoscopy - 12/28/2019 - w/ left ureteral stent placement. Hammer toe operation - 10/03/2019 - Rt foot Colonoscopy - 05/26/2015 - occasional diverticulum and very sensitive colon EGD/Endoscopy - 05/26/2015 - very mild 1st portion duodenitis Cholecystectomy - 01/15/2013 - Laparoscopic Past Medical History Notes: Abnormal Pap Smear Mammogram Colonoscopy MRI[09/19/2012] Upper Extremity X-ray[12/17/2016] EGD[05/26/2015] Colonoscopy[05/26/2015] X- ray[01/04/2013] Sleep Study-PSG[04/21/2005] Screening Name Score Notes Caraway Sleepiness 1 HPI Franchesca Robledo has a visit for LUANA follow-up. Franchesca was last seen by me on 04/28/18. She had a PSG 04/21/2005 with an AHI of 21 and Sp02 andrew 79%. No significant PLMS. She was initially treated with CPAP 10 cm and felt the pressure was too much. Titration study 03/03/2011. CPAP was titrated to 10 cm, 8 cm and higher was successful. APAP 6-10 cm was recommended. At her last visit she was using CPAP 12-16 cm nightly with improvement in her sleepiness and an excellent reduction in AHI. No change was made. Franchesca tells me she is using CPAP every night and still says I can't sleep without that thing. She goes to bed around 11 pm, she falls asleep in a few minutes or a longtime if her brain is busy. She wakes 1/night to urinate and gets back to sleep easily. She gets up at 7-8:30 am. She is using nasal pillows and tolerates these well but she needs new supplies and has recently ordered those. Sheis not aware of snoring (she lives alone), she is nt napping. The CPAP air pressure feels ok or that she could use more at times. The CPAP is functioning fine. ESS today 10/26 COMPLIANCE REVIEW: 01/10/21-02/08/21, Used 30/30 days, average use 9 hours 15 minutes a night, mean pressure 12.3cm, 90 th percentile pressure 13.5cm, time in large air leak 1 minute, AHI 2.5/hour. ROS ROS as noted in the HPI Physical Exam Patient is a 70-year-old female. General: A&O, well groomed over weight . HEAD: normocephalic & atraumatic. EYES: non icteric. LUNGS: CTA all frey. Good air movement. CARDIO: RRR without murmur, gallop or thrill. NEURO: A&O. Normal gait. PSYCH: Normal mood and affect. CUTANEOUS: no overt lesions or rashes Assessment / Plan 1. Obstructive sleep apnea syndrome - LUANA diagnosed in 2004 with an AHI of 21/hr. She has been using APAP 12-16 cm with excellent compliance and reduction in AHI. She says she cannot sleep without her CPAP. She continues to have completeelimination of daytime sleepiness and continued use of CPAP is recommended. She is encouraged to keep up with the routine maintenance of the machine and to clean and replace parts as indicated. I will see her back in two years. Drowsy driving precautions were reviewed. She is asked to call the clinic for any sleep related questions or concerns. I provided greater than 30 minutes in the care of this patient, more than half the time was spent in uijy-ny-ohnt counseling. G47.33: Obstructive sleep apnea (adult) (pediatric) Return to Office OR ROOM 4 for Surgical Procedure 75 at [facility] on 02/11/2021 at 10:30 AM MELO LOWRY MD for Surgical Procedure 75 at [facility] on 02/11/2021 at 10:30 AM MELO LOWRY MD for OR 15 at [facility] on 02/11/2021 at 09:45 AM to see Minerva Charles MD for Follow Up 30 at [facility] Card[facility] on or around 01/08/2022 to see EMI CAMPOS NP at Sleep Medicine on or around 02/09/2023 to see MELO LOWRY MD at [facility] Surgical on or around 05/26/2025 Electronically Signed on 12/28/22 11:10 AM Nic Downs Patient Care team information Care Team Personnel Name: Marisa [facility] Position: Physician Member Role: Primary Care Physician Address: Address: [address] [place] [id number] [place] Care Team Related Persons Name: EMI ROBLEDO Address: Home Name: EMI ROBLEDO Address: Home Name: ZOE ROBLEDO Address: Home Name: ZOE ROBLEDO Address: Home
--- OUTSIDE RECORDS SUMMARY | 2023-02-02 15:20 | XMS_ITS | Continuity of Care Document ---
Author Name Unknown Organization [facility] Address [address] [place] [address] Care Team Providers Care Visual Communications Instructor Name Role Phone Prime[facility] Primary Care Physician Encounter [facility] Date(s): 08/30/22 - 08/30/[address] [address] Discharge Disposition: Home or Self Care Attending [...] Daily, # 90 tab, 4 Refill(s), Pharmacy: [facility], 165, cm, 03/01/22 12:07:00 EDT, Height/Length [...] Personnel Name: Carlos Sykes MD Address: Address: [address] [address]- [place]
[2023-02-02 20:55] LABS: ALT 27 U/L (14-59); AST 21 U/L (15-37); Albumin 3.8 g/dL (3.4-5.0); Alkaline Phosphatase 81 U/L (46-116); Anion Gap 9.4 mmol/L (3-11); BUN 18 mg/dL (7-18); Bilirubin, Total 0.3 mg/dL (0.2-1.0); CO2 25.6 mmol/L (21.0-32.0); CREATININE 1.2 mg/dL (0.55-1.02); Calcium 9.5 mg/dL (8.5-10.1); Chloride 107 mmol/L (98-107); Glucose 73 mg/dL (74-106); Potassium 4.6 mmol/L (3.5-5.1); Sodium 142 mmol/L (136-145); Total Protein 7.3 g/dL (6.4-8.2)
== END 2023-02-02 15:17 | disposition home or self-care (01) ==
LOC: NCHCN 15:16
PROVIDERS: PCP Internal Medicine; Visit Provider Physician Assistant
DX: I10 Essential (primary) hypertension (principal)
CPT/HCPCS: 80053

== ENCOUNTER 2023-02-16 11:47 | Outpatient (CLI) | payer OTHER, MEDICAID, SELFPAY ==
--- NOTE | 2023-02-16 06:00 | DI.RAD_ITS ---
Exam(s) XR PAIN CLINIC LUMBAR SP 2V EXAM: XR PAIN CLINIC LUMBAR SP 2V CLINICAL HISTORY: Dx: Lumbar Spondylosis. TECHNIQUE: Fluoroscopy was provided for the referring physician for guidance with performing pain cl inic injection procedure. COMPARISON: No exams were available for comparison FINDINGS: Please see procedure note for details. Fluoro time: 36.9 seconds RADIATION DOSE DELIVERED: la Merritt=16.58 mGy
[2023-02-16 12:03] VITALS: BP 166/87; PULSE 76; RESP 20; TEMP 36.3; O2SAT 97
[2023-02-16] MEDS: Omnipaque 240 MG/ML 50 ML BTL IJ (12:57)
[2023-02-16] MEDS: Bupivacaine 0.5% Pres-Free 10 ML VIAL IJ (13:00)
--- NOTE | 2023-02-16 13:02 | PDOC.PAIN ---
Date of service: 02/16/23 Time of Service: 13:09 Pain Managment Procedure Note Procedure Note Procedure Note: Lumbar/Sacral Medial Branch Blocks Franchesca Robledo has been referred to the [facility] for lumbar/sacral medial branch blocks. COMMENTS: She was seen in the office by me on 07/07/22. Her symptoms have not changed. Pre-procedure pain VAS was 4/10. Dx: Lumbosacral spondylosis without myelopathy Patient was interviewed and the medical record reviewed. There were no medical, pharmacologic, radiographic or other structural contraindications to attempting fluoroscopically guided local anesthetic lumbar/sacral medial branch blocks. Risks and expected side effects as well as potential benefit of the procedure were reviewed and voiced concerns addressed. The printed consent form was signed and witnessed. Standard time-out procedure was performed. Patient was placed in the prone position on the fluoroscopy table and automated blood pressure cuff and pulse oximeter applied. The skin entry points for approaching the anatomic target points of the segmental medial branches of right L2-L5 were identified with anfluoroscopy and marked. Following thorough Chlorhexadine preparation of the skin and draping, a 25 gauge 3.5 spinal needle was placed under fluoroscopic guidance down on to the target point for each respective segmental medial branch.Position was confirmed in A/P, oblique and lateral views with 0.25ml of omnipaque 240. At this point I injected 0.5ml 0.5% Bupivacaine at each segmental sensory nerve. Vital signs were stable throughout the procedure and were as recorded in the docflowsheet by the nursing staff. Follow up plans and appointments were discussed and was instructed to keep careful note of how the usual pain was modified by these injections. Specifically was asked to keep a pain diary for the next 4 hours using a numeric pain scale of 0-10 and report these results at the follow-up visit. Post procedure instruction was given as documented in the nursing documentation and having met discharge criteria. Patient was discharged from the [facility]. Based on the medial branches blocked today, if the patient has adequate relief and we are able to proceed to radiofrequency ablation, the treatment should result in the denervation of the right L3-L4, L4-L5 and L5-S1 FACET JOINTS. We would expect to denervate a total of 3 facets during the radiofrequency ablation. COMMENTS: Post-procedure pain VAS was 2/10. Chetan Damon DO, MPH [facility] [place] [place] CC: Carlos Cunningham
[2023-02-16 13:08] VITALS: BP 143/77; PULSE 70; RESP 15; O2SAT 95
== END 2023-02-16 11:48 | disposition home or self-care (01) ==
LOC: PC 11:48
PROVIDERS: PCP Internal Medicine; Visit Provider Preventive Medicine Occupational Medicine
DX: M47.817 Spondylosis without myelopathy or radiculopathy, lumbosacral region (principal); M54.50 Low back pain, unspecified
CPT/HCPCS: 64493; 64494; 64495; 72100; Q9967

== ENCOUNTER 2023-03-22 12:54 | Outpatient (CLI) | payer OTHER, MEDICAID, SELFPAY ==
[2023-03-22 13:07] VITALS: BP 137/85; PULSE 78; RESP 20; TEMP 36.1; O2SAT 97
[2023-03-22] MEDS: Bupivacaine 0.5% Pres-Free 10 ML VIAL IJ (13:49)
[2023-03-22] MEDS: Omnipaque 240 MG/ML 50 ML BTL IJ (13:50)
--- NOTE | 2023-03-22 13:50 | DI.RAD_ITS ---
Exam(s) XR PAIN CLINIC LUMBAR SP 2V EXAM: XR PAIN CLINIC LUMBAR SP 2V CLINICAL HISTORY: Dx: Lumbar Spondylosis TECHNIQUE: 2D and realtime digital imaging was performed. CONTRAST MATERIAL: Refer to procedure report. COMPARISON: No exams were available for comparison FINDINGS: Fluoroscopy was provided for Dr. Damon during the performance of a lumbar medial branch block. Leah denise refer to the procedure report for complete details. Ka,r=10.2 mGy IMPRESSION:
[2023-03-22 13:53] VITALS: BP 150/83; PULSE 68; RESP 17; O2SAT 95
--- NOTE | 2023-03-22 13:58 | PDOC.PAIN ---
Date of service: 03/22/23 Time of Service: 13:58 Pain Managment Procedure Note Procedure Note Procedure Note: Lumbar/Sacral Medial Branch Blocks Franchesca Robledo has been referred to the [facility] for lumbar/sacral medial branch blocks. COMMENTS: She did great with the initial LMBB at the right L2-L5. I am completing this procedure at the right L3-L4 in addition to the right L4-L5 and L5-S1 as this is what we did in the initial block (for which she had >80% pain relief). We were only pre-authorized this time for 2 levels, but she understands and is again consented for 3 facet joint levels. Pre-procedure pain VAS was 6/10 Dx: Lumbosacral spondylosis without myelopathy Patient was interviewed and the medical record reviewed. There were no medical, pharmacologic, radiographic or other structural contraindications to attempting fluoroscopically guided local anesthetic lumbar/sacral medial branch blocks. Risks and expected side effects as well as potential benefit of the procedure were reviewed and voiced concerns addressed. The printed consent form was signed and witnessed. Standard time-out procedure was performed. Patient was placed in the prone position on the fluoroscopy table and automated blood pressure cuff and pulse oximeter applied. The skin entry points for approaching the anatomic target points of the segmental medial branches of right L2-L5 were identified with anfluoroscopy and marked. Following thorough Chlorhexadine preparation of the skin and draping and 1% lidocaine infiltration of the skin entry points and subcutaneous tissues, a 22 gauge spinal needle was placed under fluoroscopic guidance down on to the target point for each respective segmental medial branch.Position was confirmed in A/P, oblique and lateral views with 0.25ml of omnipaque 240. At this point 0.5ml of 0.5% Bupivacaine was injected. Vital signs were stable throughout the procedure and were as recorded in the docflowsheet by the nursing staff. Follow up plans and appointments were discussed and was instructed to keep careful note of how the usual pain was modified by these injections. Specifically was asked to keep a pain diary for the next 4 hours using a numeric pain scale of 0-10 and report these results at the follow-up visit. Post procedure instruction was given as documented in the nursing documentation and having met discharge criteria. Patient was discharged from the [facility]. Based on the medial branches blocked today, if the patient has adequate relief and we are able to proceed to radiofrequency ablation, the treatment should result in the denervation of the right L3-L4, L4-L5 and L5-S1 FACET JOINTS. We would expect to denervate a total of 3 facets during the radiofrequency ablation. COMMENTS: Post-procedure pain VAS was 1/10. Chetan Damon DO, MPH [facility]-Pain Management [facility] CC: Carlos Cunningham
== END 2023-03-22 12:55 | disposition home or self-care (01) ==
PROVIDERS: PCP Internal Medicine; Visit Provider Preventive Medicine Occupational Medicine
DX: M47.817 Spondylosis without myelopathy or radiculopathy, lumbosacral region (principal); M54.50 Low back pain, unspecified
CPT/HCPCS: 64493; 64494; 72100; Q9967

== ENCOUNTER 2023-04-07 11:15 | Outpatient (CLI) | payer OTHER, MEDICAID, SELFPAY ==
[2023-04-07 11:38] VITALS: BP 144/83; PULSE 62; RESP 20; TEMP 36.5; O2SAT 95
[2023-04-07] MEDS: Midazolam 2 MG/2 ML VIAL IVP (12:19)
[2023-04-07] MEDS: fentaNYL 100 MCG/2 ML VIAL IVP ×2 (12:19→12:22)
[2023-04-07] MEDS: Lactated Ringers 500 ML 80 ML IV (12:19)
--- NOTE | 2023-04-07 12:45 | DI.RAD_ITS ---
Exam(s) XR PAIN CLINIC LUMBAR SP 2V EXAM: XR PAIN CLINIC LUMBAR SP 2V CLINICAL HISTORY: Dx: Lumbar Spondylosis. TECHNIQUE: Fluoroscopy was provided for the referring physician for guidance with performing pain cl inic injection procedure. COMPARISON: No exams were available for comparison FINDINGS: Please see procedure note for details. Fluoro time: 44.2 seconds RADIATION DOSE DELIVERED: la Merritt=12.37 mGy
[2023-04-07 12:49] VITALS: BP 121/79; PULSE 69; RESP 16; O2SAT 98
[2023-04-07] MEDS: Lidocaine 2% Pres-Free 5 ML VIAL IJ (12:56)
--- NOTE | 2023-04-07 12:58 | PDOC.PAIN ---
Date of service: 04/07/23 Time of Service: 13:00 Pain Managment Procedure Note Procedure Note Procedure Note: PROCEDURE NOTE RIGHT LUMBAR RADIOFREQUENCY ABLATION Date of Service: April 07, 2023 Patient:Franchesca Alexandre? Provider:? Chetan Damon DO, MPH Franchesca Robledo has been referred to the [facility] for Right Lumbar Radiofrequency Ablation with the [employer] Machine.? Pre Operative Diagnosis: Lumbosacral Spondylosis without Myelopathy Post Operative Diagnosis: Same Pre procedure pain; VAS= 6/10 Comments: She did very well with the LMBBs PROCEDURE: Radiofrequency Ablation of medial branches - right L2, L3, L4, L5 and lateral branches of the right S1. Franchesca?was interviewed and the medical record was reviewed.? There were no medical, pharmacologic, radiographic or other structural contraindications to attempting fluoroscopically guided RIGHT Lumbar Radiofrequency Ablation.?Risks and expected side effects as well as potential benefit of the procedure were reviewed with Franchesca, and the patient's voiced concerns were addressed.? The printed consent form was signed.? Standard time-out procedure was performed. Franchesca was brought into the fluoroscopy suite and positioned into the prone position on the fluoroscopy table and allowed to adjust to a position of comfort. A grounding pad was placed on the left abdomen. The sterile field was prepared using chlorhexidine preparation of the skin and sterile draping. Local anesthesia superficial and deep was provided by local infiltration of 2% lidocaine. A 17g 100 mm radiofrequency introducer needle was placed to the planned anatomic targets guided with intermittent fluoroscopy with a perpendicular approach to terminally place at the junction of the superior articular process and the transverse process of the right L3, L4, L5, the base of the sacral ala on the right for the L5 medial branch nerve and the area between base of the sacral ala to the S1 foramen on the right. The stylets were removed and radiofrequency probes with a 4mm active tip were then inserted. Needle tip position of the probes was verified in the AP, oblique, and lateral views. At each site, the medial branch nerve was stimulated at 2 Hz to a maximum 1-2 volts determined to finalize safe needle and electrode placement. The patient was awake and responsive during this portion of the procedure. Each target was anesthetized with 1-2 mL of 2 % Lidocaine for anesthesia for lesioning and then each target was lesioned at 80 degrees Celsius for 2 minutes and 30 seconds. Tissue impedances were noted to be between 250 and 500 Ohms. There was no unusual discomfort expressed by Franchesca. The needles were withdrawn without difficulty and bandages placed over the needle placement sites, the patient was observed and was without hemodynamic, neurologic, or allergic reactions. Fluoroscopic images were digitally archived. POST PROCEDURE EVALUATION: IMPRESSION: 1. Summary of procedure. Medication given is documented in the MAR. 2. Follow up plan: Franchesca to contact [facility] as needed.?This procedure may be repeated if the patient achieves at least 50% improvement in pain/function for at least 6 months. 3. Estimated Blood Loss: <5 mls 4. Fluoroscopy time: Documented in the EMR. Follow up plans and appointments were discussed with the Franchesca. Post procedure instruction was given as documented in nursing documentation and having met discharge criteria, Franchesca was discharged from the [facility]. COMMENTS: No apparent complications. Post-procedure pain: VAS= 2/10. I personally completed the entire procedure. CHETAN DAMON DO, MPH [employer] - Subspecialty board certification in Pain Medicine [facility] [facility]
[2023-04-07] MEDS: methylPREDNISolone ACETATE 40 MG/ML VIAL (13:00)
[2023-04-07] MEDS: Bupivacaine 0.5% Pres-Free 10 ML VIAL IJ (13:00)
== END 2023-04-07 11:16 | disposition home or self-care (01) ==
LOC: PC 11:16
PROVIDERS: PCP Internal Medicine; Visit Provider Preventive Medicine Occupational Medicine
DX: M47.817 Spondylosis without myelopathy or radiculopathy, lumbosacral region (principal); M54.50 Low back pain, unspecified
CPT/HCPCS: 64635; 64636; 72100; J1030; J2250; J3010

== ENCOUNTER 2023-05-04 17:42 | Outpatient (REF) | payer OTHER, MEDICAID, SELFPAY ==
[2023-05-04 20:47] LABS: Hemoglobin A1C 6.1 % (<5.7)
[2023-05-04 20:48] LABS: TSH (W/Ref FT4) 1.55 uIU/mL (0.36-3.74)
[2023-05-04 21:02] LABS: Vitamin D 25 Total 55.7 ng/mL (30-100)
== END 2023-05-04 17:43 | disposition home or self-care (01) ==
LOC: NCHCN 17:42
PROVIDERS: PCP Internal Medicine; Visit Provider Physician Assistant
DX: R73.03 Prediabetes (principal); E55.9 Vitamin D deficiency, unspecified; R61 Generalized hyperhidrosis
CPT/HCPCS: 82306; 83036; 84443

== ENCOUNTER 2023-08-03 12:37 | Outpatient (REF) | payer OTHER, MEDICAID, SELFPAY ==
[2023-08-11 08:46] LABS: Codeine Negative ng/mL (Cutoff: 25); Dihydrocodeine 288 ng/mL (Cutoff: 25); Hydrocodone 322 ng/mL (Cutoff: 25); Hydromorphone Negative ng/mL (Cutoff: 25); Morphine Negative ng/mL (Cutoff: 25); Naloxone Negative ng/mL (Cutoff: 25); Norhydrocodone 619 ng/mL (Cutoff: 25); Noroxycodone 5994 ng/mL (Cutoff: 25); Noroxymorphone 52 ng/mL (Cutoff: 25); Opiates Interpretation Positive.
== END 2023-08-03 12:38 | disposition home or self-care (01) ==
LOC: NCHCN 12:37
PROVIDERS: PCP Internal Medicine; Visit Provider Physician Assistant
DX: G89.29 Other chronic pain (principal)
CPT/HCPCS: 80361; 80362; 80365

== ENCOUNTER 2024-02-15 10:08 | Outpatient (REF) | payer OTHER, MEDICAID, SELFPAY ==
[2024-02-15 21:10] LABS: TSH (W/Ref FT4) 1.89 uIU/mL (0.36-3.74)
[2024-02-16 10:15] LABS: Abs Immature Grans 0.04 10^3/uL (0.0-0.06); Absolute Basophil Count 0.04 10^3/uL (0.0-0.2); Absolute Eosinophil Count 0.13 10^3/uL (0.0-0.7); Absolute Lymphocyte Count 2.02 10^3/uL (1.2-3.4); Absolute Monocyte Count 0.56 10^3/uL (0.1-0.8); Absolute Neutrophil Count 5.65 10^3/uL (1.2-6.7); Basophils % 0.5 %; Eosinophils % 1.5 %; HCT 42.8 % (36.0-46.0); HGB 13.4 g/dL (11.2-15.7); Immature Grans % 0.5 %; Lymphocytes % 23.9 %; MCH 28.6 pg (27.0-33.0); MCHC 31.3 % (32.0-36.0); MCV 92 fL (80-95); Monocytes % 6.6 %; Platelet Count 317 10^3/uL (130-400); RBC 4.68 10^6/uL (3.93-5.22); RDW 13.6 % (11.7-14.6); RDW-SD 45.6 fL; WBC 8.44 10^3/uL (4.4-10.8)
[2024-02-16 10:27] LABS: ALT 24 U/L (14-59); AST 17 U/L (15-37); Albumin 3.9 g/dL (3.4-5.0); Alkaline Phosphatase 91 U/L (46-116); Anion Gap 12.6 mmol/L (3-11); BUN 27 mg/dL (7-18); CO2 26.4 mmol/L (21.0-32.0); CREATININE 1.2 mg/dL (0.55-1.02); Calcium 9.5 mg/dL (8.5-10.1); Chloride 101 mmol/L (98-107); Estimated GFR 47.21 (mL/min/1.73m2); Glucose 136 mg/dL (74-106); Potassium 4.2 mmol/L (3.5-5.1); Sodium 140 mmol/L (136-145); Total Protein 6.9 g/dL (6.4-8.2)
[2024-02-16 10:49] LABS: Vitamin D 25 Total 51.6 ng/mL (30-100)
== END 2024-02-15 10:09 | disposition home or self-care (01) ==
LOC: NCHCN 10:08
PROVIDERS: PCP Internal Medicine; Visit Provider Physician Assistant
DX: E04.1 Nontoxic single thyroid nodule (principal); N18.30 Chronic kidney disease, stage 3 unspecified
CPT/HCPCS: 80053; 82306; 84443; 85025

== ENCOUNTER 2024-03-20 11:26 | Outpatient (REF) | payer OTHER, MEDICAID, SELFPAY ==
--- NOTE | 2024-03-20 10:45 | SKI_PTH ---
PATIENT: Franchesca Robledo LOC: [facility]#:[id number] AGE/SX: 74/F ROOM: RE03/20/[address]: Celine Mcmahan : 1950 BED: DIS: 03/20/2024 SPEC #: [id number] RECD: 03/21/24 12:42 STATUS: VAZQUEZ REHalina #: [id number] ZAIDA: 03/20/24 10:[address]: Celine Mcmahan DEPT: Surgical Specimen RECD BY: Odessa Yepez ENTERED: 03/21/24 12:43 SP TYPE: АНДРЕЙ MERCER DR: Carlos Cunningham Tissues: 1 - SKIN BIOPSY(SHAVE/PUNCH) 2 - SKIN BIOPSY(SHAVE/PUNCH) Procedures: SKIN LEVEL 4 Comments: [id number]
== END 2024-03-20 11:27 | disposition home or self-care (01) ==
LOC: NCHCN 11:26
PROVIDERS: PCP Internal Medicine; Visit Provider Physician Assistant
DX: D22.5 Melanocytic nevi of trunk (principal); L82.0 Inflamed seborrheic keratosis
CPT/HCPCS: 88305

== ENCOUNTER → 2024-05-29 10:43 | Outpatient (BNVA) | payer OTHER, MEDICAID, SELFPAY | PROVIDERS: PCP Nurse Practitioner Family; Referring Provider Nurse Practitioner Family; Visit Provider Psychiatry & Neurology Neurology | DX: G70.00 Myasthenia gravis without (acute) exacerbation (principal); H53.19 Other subjective visual disturbances | CPT/HCPCS: 99205; G2212 ==

== ENCOUNTER 2024-08-07 01:15 | Outpatient (CLI) | payer OTHER, MEDICAID, SELFPAY ==
--- NOTE | 2024-08-07 07:30 | DI.RAD_ITS ---
Exam(s) XR FOOT LT COMPLETE EXAM: XR FOOT LT COMPLETE CLINICAL HISTORY: pain in left foot,m79.671,m78.672. TECHNIQUE: 2D digital imaging was performed. Three views. COMPARISON: CR XR FOOT RT COMPLETE from 08/07/2024 FINDINGS: BONES: No acute fracture is present. No bony destructive lesion is seen. Small plantar calcaneal sp ur. JOINTS: No dislocation present. Minimal degenerative changes. Hammertoe deformities. SOFT TISSUE: Normal. IMPRESSION: Small heel spur. Minimal degenerative changes. Hammertoe deformities. DATA REPOSITORY: RADIATION DOSE DELIVERED:
--- NOTE | 2024-08-07 07:30 | DI.RAD_ITS ---
Exam(s) XR FOOT RT COMPLETE EXAM: XR FOOT RT COMPLETE CLINICAL HISTORY: pain in right foot,m79.671. TECHNIQUE: 2D digital imaging was performed of the right foot. Three images were obtained. AP, obl ique and lateral views were obtained. COMPARISON: CR ORTHO FOOT RIGHT MIN3V from 01/28/2017 FINDINGS: BONES: No acute fracture is present. No bony destructive lesion is seen. There is a small plantar arthur caneal spur. There are degenerative changes seen at the 1st and 2nd tarsometatarsal joints with oste ophytes joint space narrowing and subchondral cysts. JOINTS: No dislocation present. SOFT TISSUE: Normal. IMPRESSION: Mild degenerative changes of the right foot. DATA REPOSITORY: RADIATION DOSE DELIVERED:
== END 2024-08-07 01:35 ==
LOC: DI 01:15
PROVIDERS: PCP Nurse Practitioner Family; Visit Provider Podiatrist
DX: M79.671 Pain in right foot (principal); M79.672 Pain in left foot
CPT/HCPCS: 20550; 73630

== ENCOUNTER 2025-01-11 12:21 | Outpatient (REF) | payer MEDICARE, MEDICAID, SELFPAY ==
[2025-01-11 19:02] LABS: Abs Immature Grans 0.02 10^3/uL (0.0-0.06); Absolute Basophil Count 0.05 10^3/uL (0.0-0.2); Absolute Eosinophil Count 0.14 10^3/uL (0.0-0.7); Absolute Lymphocyte Count 2.03 10^3/uL (1.2-3.4); Absolute Monocyte Count 0.68 10^3/uL (0.1-0.8); Absolute Neutrophil Count 5.72 10^3/uL (1.2-6.7); Basophils % 0.6 %; Eosinophils % 1.6 %; HCT 40.8 % (36.0-46.0); HGB 12.6 g/dL (11.2-15.7); Immature Grans % 0.2 %; Lymphocytes % 23.5 %; MCH 28.9 pg (27.0-33.0); MCHC 30.9 % (32.0-36.0); MCV 94 fL (80-95); MPV 10.2 fL (8.0-11.0); Monocytes % 7.9 %; Neutrophils % 66.2 %; Platelet Count 269 10^3/uL (130-400); RBC 4.36 10^6/uL (3.93-5.22); RDW 13.3 % (11.7-14.6); RDW-SD 45.9 fL; WBC 8.64 10^3/uL (4.4-10.8)
[2025-01-11 19:45] LABS: ALT 38 U/L (14-59); AST 25 U/L (15-37); Albumin 3.6 g/dL (3.4-5.0); Alkaline Phosphatase 91 U/L (46-116); Anion Gap 11.5 mmol/L (3-11); BUN 22 mg/dL (7-18); Bilirubin, Total 0.3 mg/dL (0.2-1.0); CO2 26.5 mmol/L (21.0-32.0); CREATININE 1.1 mg/dL (0.55-1.02); Chloride 107 mmol/L (98-107); Estimated GFR 52.08 (mL/min/1.73m2); Folate 12.7 ng/mL (8.6-20.0); Glucose 115 mg/dL (74-106); Potassium 4.1 mmol/L (3.5-5.1); Sodium 145 mmol/L (136-145); TSH (W/Ref FT4) 1.75 uIU/mL (0.36-3.74); Total Protein 6.8 g/dL (6.4-8.2); Vitamin B12 633 pg/mL (193-986)
[2025-01-14 09:00] LABS: Hepatitis C Ab w Rflx HCV PCR Negative (Negative)
== END 2025-01-11 12:22 | disposition home or self-care (01) ==
LOC: NCHCN 12:21
PROVIDERS: PCP Nurse Practitioner Family; Visit Provider Physician Assistant
DX: G62.9 Polyneuropathy, unspecified (principal); Z11.59 Encounter for screening for other viral diseases
CPT/HCPCS: 80053; 86803; 82607; 82746; 83735; 84443; 85025

== ENCOUNTER 2025-07-10 13:05 | Outpatient (REF) | payer MEDICARE, MEDICAID, SELFPAY ==
[2025-07-10 20:39] LABS: Abs Immature Grans 0.02 10^3/uL (0.0-0.06); HCT 40.3 % (36.0-46.0); HGB 12.8 g/dL (11.2-15.7); Immature Grans % 0.2 %; MCH 29.1 pg (27.0-33.0); MCHC 31.8 % (32.0-36.0); MCV 92 fL (80-95); MPV 10.0 fL (8.0-11.0); Platelet Count 286 10^3/uL (130-400); RBC 4.40 10^6/uL (3.93-5.22); RDW 13.2 % (11.7-14.6); RDW-SD 45.0 fL; WBC 8.56 10^3/uL (4.4-10.8)
[2025-07-10 20:54] LABS: ALT 27 U/L (14-59); AST 17 U/L (15-37); Albumin 3.7 g/dL (3.4-5.0); Alkaline Phosphatase 89 U/L (46-116); Amylase 49 U/L (25-115); Anion Gap 9.5 mmol/L (3-11); BUN 17 mg/dL (7-18); Bilirubin, Total 0.3 mg/dL (0.2-1.0); CO2 26.5 mmol/L (21.0-32.0); Calcium 9.0 mg/dL (8.5-10.1); Chloride 103 mmol/L (98-107); Estimated GFR 58.02 (mL/min/1.73m2); GGT 16 U/L (5-55); Glucose 101 mg/dL (74-106); Lipase 24 U/L (<78); Potassium 4.2 mmol/L (3.5-5.1); Sodium 139 mmol/L (136-145); Total Protein 6.9 g/dL (6.4-8.2)
== END 2025-07-10 13:06 | disposition home or self-care (01) ==
LOC: NCHCN 13:05
PROVIDERS: PCP Nurse Practitioner Family; Visit Provider Physician Assistant
DX: R10.10 Upper abdominal pain, unspecified (principal); Z79.899 Other long term (current) drug therapy
CPT/HCPCS: 80053; 80361; 80362; 80365; 83690; 82150; 82977; 85025